=== PATIENT | male | born 1950 | race Caucasian/White ===

== ENCOUNTER → 2016-12-25 08:15 | Outpatient (CLI) | payer MEDICARE, BC, OTHER ==
[~2016-12-25 08:15] MED LIST: CRESTOR20 MG PO; EXFORGE 5-160 M1 TAB PO; METFORMIN HCL500 M1 PO; PROTONIX40 MG PO; ZANTAC300 MG PO
[2016-12-25 09:39] LABS: BILIRUBIN - DIRECT 0.1 mg/dL (0.00-0.30); BILIRUBIN - INDIRECT 0.45 mg/dL (0.00-1.00); BILIRUBIN - TOTAL 0.55 mg/dL (0.2-1.3); CREATININE - SERUM 1.3 mg/dL (0.6-1.3)
[2017-02-11 13:29] VITALS: BMI 26.5
== END | disposition home or self-care (01) ==
LOC: D.US 12-24 09:00 → D.LAB 12-24 09:30 → D.US 08:15
PROVIDERS: Internal Medicine Gastroenterology
DX: K76.0 Fatty (change of) liver, not elsewhere classified (principal); Z01.812 Encounter for preprocedural laboratory examination

== ENCOUNTER 2017-02-11 05:39 | Day surgery (SDC) | payer MEDICARE, BC, OTHER ==
[2017-02-07 12:15] LABS: ANION GAP 13.7 mmol/L (8-16); CALCIUM 9.6 mg/dL (8.5-10.1); CARBON DIOXIDE 27.2 mmol/L (21.0-32.0); CREATININE - SERUM 1.2 mg/dL (0.6-1.3); POTASSIUM - SERUM 3.9 mmol/L (3.5-5.1)
[2017-02-07 12:20] LABS: HEMATOCRIT 39.3 % (42.0-54.0); HEMOGLOBIN 13.3 g/dL (13.5-17.5); MCHC 33.8 g/dL (31.0-37.0); MCV 85.8 fL (80.0-100.0); MEAN PLATELET VOLUME 9.6 fL (7.4-10.4); RBC 4.58 10x6/uL (4.20-6.10); RDW 13.4 % (11.5-14.5)
[~2017-02-11] VITALS: Ht 182.9 cm; Wt 88.5 kg
[2017-02-11 13:29] VITALS: BP 157/84; Ht 182.9 cm; Wt 88.5 kg
--- NOTE | 2017-02-11 19:30 | NUR ---
DISCHARGE INSTRUCTIONS REVIEWED WITH PATIENT AND SIGNIFICANT OTHER, PATIENT DISCHARGED HOME VIA WHEELCHAIR TO PRIVATE VEHICLE WITH SIGNIFICANT OTHER
--- NOTE | 2017-02-13 13:27 | OP ---
PATIENT NAME: SONI BADILLO MEDICAL RECORD: [id number] :46 LOCATION:D.OPS ADMISSION DATE: SURGEON: KRISTINA OSCAR MD DATE OF OPERATION: 02/11/2017 PRINCIPAL DIAGNOSES: 1. Bleeding fundal polyps. 2. Bermudez esophagus. 3. Numerous polyps throughout the cardia, fundus, and antrum. POSTOPERATIVE DIAGNOSES: 1. Bleeding fundal polyps. 2. Bermudez esophagus. 3. Numerous polyps throughout the cardia, fundus, and antrum. PROCEDURES: 1. Esophagogastroduodenoscopy with antral and distal esophageal biopsies. 2. Gastric polypectomy. 3. Ablation of 45 gastric polyps with the argon plasma glassware finisher, which is a radiofrequency type of ablation of a benign gastric process. SURGEON: Kristina Oscar MD PARTS ANALYST: None. BLOOD LOSS: Minimal. ANESTHESIA: General. COMPLICATIONS: None. The risks, possible complications, and alternatives to the procedure were explained to the patient. He elects to proceed. OPERATIVE COURSE: The patient was conveyed to the operating room electively on 02/11/2017. General anesthesia was induced by anesthesia staff. A bite block was inserted. A gastroscope was inserted into the mouth. It was advanced easily into the hypopharynx. The esophagus was easily intubated as were the stomach and duodenum. Upon withdrawal, retroflexed and angulus views were obtained. Antral biopsies were obtained. There was one large polyp, which had stigmata of recent hemorrhage. This was biopsied multiplely and then the rest of the polypoid base was ablated with the argon plasma glassware finisher. I then utilized the argon plasma glassware finisher with the esophageal setting in the forced mode to ablate 45 polyps ranging in size from 5 mm to 1.8 cm. There was no evidence of a full-thickness perforation. I then withdrew into the distal esophagus. There was a long-segment Bermudez's present, and I performed multiple biopsies in the area of Bermudez esophagus. The endoscope was withdrawn under direct vision. I will see the patient in my office in 2-3 weeks. I will plan to return his endoscopic needs back over to Dr. Cleaning. TRANSINT:[id number] Voice Confirmation ID: [id number] DOCUMENT ID: [id number] OPERATIVE REPORT [id number] SONI BADILLO KRISTINA OSCAR MD at 1327 CC: GUILLAUME CLEANING MD, PATRICIA BUTLER MD and LUIS ANGEL BROWN [id number] DICTATION DATE: 02/11/17 175 COMPLAINT SPECIALIST: 02/12/17 0044 [facility] 02/11/17 [id number] [place] [address]
== END 2017-02-11 19:30 | disposition home or self-care (01) ==
LOC: D.OPS 05:39 → D.PAN 13:45 → D.OPS 14:00
PROVIDERS: Anesthesiology
DX: K22.70 Barrett's esophagus without dysplasia (principal); K31.7 Polyp of stomach and duodenum; I10 Essential (primary) hypertension; E11.9 Type 2 diabetes mellitus without complications; K44.9 Diaphragmatic hernia without obstruction or gangrene; K21.9 Gastro-esophageal reflux disease without esophagitis; K76.0 Fatty (change of) liver, not elsewhere classified; Z01.812 Encounter for preprocedural laboratory examination

== ENCOUNTER → 2017-08-15 08:21 | Outpatient (CLI) | payer MEDICARE, BC, OTHER ==
[2017-02-11 13:29] VITALS: BMI 26.5
[2017-08-15 09:34] LABS: BILIRUBIN - DIRECT 0.17 mg/dL (0.00-0.30); BILIRUBIN - INDIRECT 0.53 mg/dL (0.00-1.00); BILIRUBIN - TOTAL 0.7 mg/dL (0.2-1.3); PROTEIN - SERUM 7.9 g/dL (6.4-8.2)
== END | disposition home or self-care (01) ==
LOC: D.US 06-23 08:30 → D.LAB 06-23 09:00 → D.US 08:21
PROVIDERS: Internal Medicine Gastroenterology
DX: K76.0 Fatty (change of) liver, not elsewhere classified (principal)